=== PATIENT | female | born 1990 | race Caucasian/White ===

== ENCOUNTER 2017-03-22 17:04 | Observation (INO) | payer OTHER ==
[2017-03-22] MEDS ORDERED: TYLENOL 325 MG PO ONE (17:27)
[2017-03-22] MEDS ORDERED: Sodium Chloride 0.9% 1000 ML 1,000 ML IV STA ×2 (17:27→17:30)
[2017-03-22] MEDS ORDERED: Sodium Chloride 0.9% 1000 ML 1,000 ML ONE ×2 (17:32→18:39)
[2017-03-22] MEDS ORDERED: TYLENOL 325 MG ONE (17:32)
--- NOTE | 2017-03-22 17:36 | ERPHSYRPT ---
- History of Present Illness Time Seen by Provider: 03/22/17 17:24 Source: patient Exam Limitations: no limitations Patient Subjective Stated Complaint: pt here for sob,fever for 3 days now, and pain with a deep breath, cough, congestion Triage Nursing Assessment: pt alert, but anxious, and cruing off and on, moaning , pt has red blotches on trunk and arms, no new meds, resp easy, chest clear, congested cough, pt states she used iv drugs Physician History: 26-year-old white female arrives with complaint of shortness of breath fever cough productive of yellow-green sputum nausea vomiting symptoms for 3 days. Patient has had a macular rash. Patient does have a history of substance abuse however denies IV drug use. Patient apparently has recently come here from [place] past medical history includes migraines, depression, substance abuse. Past surgical history patient denies. Social history includes tobacco use. Timing/Duration: day(s) (3 days) Severity: moderate Modifying Factors: Worsens With: eating, immobilization, medication, movement, rest, acetaminophen, ibuprofen, nothing Associated Symptoms: nausea, vomiting, shortness of breath, cough, fever, malaise, rash, No heartburn, No diaphoresis, No chills, No chest pain, No headaches, No loss of appetite, No syncope, No seizure, No weakness Allergies/Adverse Reactions: No Known Drug Allergies Allergy (Verified 03/22/17 17:21) Home Medications: No Reportable Medications [No Reported Medications] 03/22/17 [History] Hx Tetanus, Diphtheria Vaccination/Date Given: No Hx Influenza Vaccination/Date Given: No Hx Pneumococcal Vaccination/Date Given: No Immunizations Up to Date: Yes - Review of Systems Constitutional: No Fever, No Chills Eyes: No Symptoms, No Discharge, No Eye Pain, No Eye Redness, No Itchy, No Photophobia, No Tearing, No Vision Changes, No Double Vision, No Foreign Body Sensation Ears, Nose, & Throat: Throat Pain, No Ear Pain, No Ear Discharge, No Hearing Changes, No Tinnitus, No Nose Pain, No Nose Congestion, No Nose Discharge, No Sinus Drainage, No Epistaxis, No Mouth Pain, No Mouth Swelling, No Loose Teeth, No Throat Swelling, No Hoarse, No Painful Swallowing, No Snoring Respiratory: Cough, Dyspnea, No Cyanosis, No Dyspnea on Exertion ([place]), No Stridor, No Wheezing Cardiac: No Chest Pain, No Edema, No Syncope Abdominal/Gastrointestinal: Nausea, Vomiting, No Abdominal Pain, No Diarrhea, No Constipation, No Hematemesis, No Hematochezia, No Melena, No Dysphagia, No Appetite Changes Genitourinary Symptoms: No Dysuria Musculoskeletal: Myalgias, No Arthralgias, No Back Pain, No Neck Pain, No Deformity, No Injury, No Joint Redness, No Joint Pain, No Joint Swelling Skin: Other (macular rasb on extremities) Neurological: No Dizziness, No Focal Weakness, No Sensory Changes Psychological: No Symptoms Endocrine: No Symptoms All Other Systems: Reviewed and Negative - Past Medical History Pertinent Past Medical History: Yes Neurological History: Migraines Psycho-Social History: Depression - Past Surgical History Past Surgical History: No - Social History Smoking Status: Current every day smoker How long have you smoked: 6 Exposure to second hand smoke: Yes Drug Use: marijuana, narcotics Patient Lives Alone: No - Female History Hx Last Menstrual Period: nov Hx Now: No - Nursing Vital Signs Nursing Vital Signs: Initial Vital Signs Temperature 102.8 F 03/22/17 17:07 Pulse Rate 139 H 03/22/17 17:07 Respiratory Rate 20 03/22/17 17:07 Blood Pressure 99/53 03/22/17 17:07 O2 Sat by Pulse Oximetry 97 03/22/17 17:07 Pain Scale Pain Intensity 10 - Physical Exam General Appearance: moderate distress, alert Eye Exam: PERRL/EOMI, eyes nml inspection Ears, Nose, Throat Exam: TMs normal, moist mucous membranes, pharyngeal erythema Neck Exam: normal inspection, non-tender, supple, full range of motion Respiratory Exam: normal breath sounds, lungs clear, No respiratory distress Cardiovascular Exam: tachycardia, capillary refill <2 sec, No murmur Gastrointestinal/Abdomen Exam: soft, normal bowel sounds, No tenderness, No mass Back Exam: normal inspection, normal range of motion, No CVA tenderness, No vertebral tenderness Extremity Exam: normal inspection, normal range of motion, pelvis stable Neurologic Exam: alert, oriented x 3, cooperative, disc sander II-XII nml as tested, normal mood/affect, nml cerebellar function, nml station & gait, sensation nml, No motor deficits Skin Exam: normal color, warm, dry, No rash SpO2 Interpretation: normal (97%) SpO2: 97 Oxygen Delivery: Room Air - Course Nursing assessment & vital signs reviewed: Yes EKG Interpreted by Me: RATE (128 bpm), Sinus Tach (EKG: Sinus tachycardia 128 beats per minute< AXISQI/SIII pattern, no acute ST or T wave changes noted) - Radiology Exams Chest X-ray Interpretation: Interpreted by me, Other (patchy interstitial infiltrate, right greater than left) Left Foot X-ray Interpretation: Interpreted by me, Negative, No Fracture, No Subluxation Ordered Tests: Active Orders 24 hr Category Date Time Status Clean Catch Urine Specimen STAT Care 03/22/17 17:59 Active EKG-ER Only STAT Care 03/22/17 17:27 Active IV Insertion STAT Care 03/22/17 17:27 Active CHEST 1 VIEW (PORTABLE) Stat Exams 03/22/17 17:28 Taken FOOT (MINIMUM 3 VIEWS) Stat Exams 03/22/17 18:12 Taken AMYLASE Stat Lab 03/22/17 17:45 Completed BLOOD CULTURE Stat Lab 03/22/17 17:50 Received CBC W DIFF Stat Lab 03/22/17 17:45 Completed CMP Stat Lab 03/22/17 17:45 Completed CULTURE, THROAT Stat Lab 03/22/17 17:50 Received CULTURE,URINE Stat Lab 03/22/17 18:00 Received HCG QUALITATIVE,SERUM Stat Lab 03/22/17 17:45 Completed LIPASE Stat Lab 03/22/17 17:45 Completed Lactic Acid Stat Lab 03/22/17 17:27 Results Manual Differential NC Stat Lab 03/22/17 17:45 Completed STREP SCREEN-BETA A Stat Lab 03/22/17 17:50 Completed UA W/ MICROSCOPIC Stat Lab 03/22/17 18:00 Completed Urine Triage Profile Stat Lab 03/22/17 17:38 Completed Medication Summary Discontinued Medications Generic Name Dose Route Start Last Admin Trade Name Freq PRN Reason Stop Dose Admin Acetaminophen 650 mg 03/22/17 17:27 03/22/17 17:36 Tylenol 325 Mg PO 03/22/17 17:28 650 mg STAT ONE Administration Acetaminophen Confirm 03/22/17 17:32 Tylenol 325 Mg Administered 03/22/17 17:33 Dose 650 mg .ROUTE .STK-MED ONE Diphenhydramine HCl 25 mg 03/22/17 18:04 03/22/17 18:06 Benadryl 50 Mg/Ml IV 03/22/17 18:05 25 mg STAT ONE Administration Diphenhydramine HCl Confirm 03/22/17 18:05 Benadryl 50 Mg/Ml Administered 03/22/17 18:06 Dose 50 mg .ROUTE .STK-MED ONE Sodium Chloride 1,000 mls @ 999 mls/hr 03/22/17 17:27 03/22/17 17:36 Sodium Chloride 0.9% 1000 Ml IV 03/22/17 18:27 999 mls/hr .Q1H1M STA Administration Sodium Chloride 1,000 mls @ 999 mls/hr 03/22/17 17:30 03/22/17 18:40 Sodium Chloride 0.9% 1000 Ml IV 03/22/17 18:30 999 mls/hr .Q1H1M STA Administration Sodium Chloride Confirm 03/22/17 17:32 Sodium Chloride 0.9% 1000 Ml Administered 03/22/17 17:33 Dose 1,000 mls @ ud .ROUTE .STK-MED ONE Ceftriaxone Sodium/Dextrose 1 g in 50 mls @ 100 mls/hr 03/22/17 17:49 18:07 Rocephin 1 Gm-D5w 50 Ml Bag IV 03/22/17 18:18 100 mls/hr STAT STA Administration Ceftriaxone Sodium/Dextrose Confirm 03/22/17 18:01 Rocephin 1 Gm-D5w 50 Ml Bag Administered 03/22/17 18:02 Dose 1 g in 50 mls @ ud IV .STK-MED ONE Sodium Chloride Confirm 03/22/17 18:39 Sodium Chloride 0.9% 1000 Ml Administered 03/22/17 18:40 Dose 1,000 mls @ ud .ROUTE .STK-MED ONE Ibuprofen 400 mg 03/22/17 18:14 03/22/17 18:21 Motrin 400 Mg PO 03/22/17 18:15 400 mg STAT ONE Administration Ibuprofen Confirm 03/22/17 18:20 Motrin 400 Mg Administered 03/22/17 18:21 Dose 400 mg .ROUTE .STK-MED ONE Potassium Chloride 40 meq 03/22/17 18:48 03/22/17 18:52 Klor Con 10 Meq PO 03/22/17 18:49 40 meq STAT ONE Administration Potassium Chloride Confirm 03/22/17 18:49 Klor Con 10 Meq Administered 03/22/17 18:50 Dose 40 meq PO .STK-MED ONE Lab/Rad Data: Laboratory Result Diagrams 03/22/17 17:45 03/22/17 17:45 Laboratory Results 03/22/17 03/22/17 03/22/17 Range/Units 18:00 17:50 17:45 WBC (4.0-10.5) K/mm3 RBC (4.1-5.4) M/mm3 Hgb (12.0-16.0) gm/dl Hct (35-47) % MCV (78-100) fl MCH (26-32) pg MCHC (32-36) g/dl RDW (11.5-14.0) % Plt Count (150-450) K/mm3 MPV (6-9.5) fl Sodium (136-145) mEq/L Potassium (3.5-5.1) mEq/L Chloride (98-107) mEq/L Carbon Dioxide (21-32) mEq/L Anion Gap (5-15) MEQ/L BUN (9-20) mg/dL Creatinine (0.55-1.30) mg/dl Estimated GFR ML/MIN Glucose (70-110) MG/DL Lactic Acid (0.4-2.0) Calcium (8.5-10.1) mg/dL Total Bilirubin (0.2-1.0) mg/dL AST (15-37) U/L ALT (12-78) U/L Alkaline Phosphatase (46-116) U/L Serum Total Protein (6.4-8.2) gm/dL Albumin (3.4-5.0) g/dL Amylase (25-115) U/L Lipase (73-393) U/L Serum , Qual (Negative) Ur Collection Type CCMS Urine Color YELLOW (YELLOW) Urine Appearance SLIGHTLY CLOUDY (CLEAR) Urine pH 6.0 (5-6) Ur Specific [place] 1.015 (1.005-1.025) Urine Protein TRACE (Negative) Urine Ketones MODERATE (NEGATIVE) Urine Blood TRACE NON-HEM (0-5) Blas/ul Urine Nitrite NEGATIVE (NEGATIVE) Urine Bilirubin SMALL (NEGATIVE) Urine Urobilinogen 4 (0-1) mg/dL Ur Leukocyte Esterase NEGATIVE (NEGATIVE) Urine Microscopic RBC 2-5 (0-2) /HPF Urine Microscopic WBC 2-5 (0-5) /HPF Ur Epithelial Cells MANY (FEW) /HPF Urine Bacteria FEW (NEGATIVE) /HPF Urine Mucus SLIGHT (NEGATIVE) /HPF Urine Culture Reflexed YES (NO) Urine Glucose NEGATIVE (NEGATIVE) mg/dL Urine Opiates Level (NEGATIVE) Ur Methadone (NEGATIVE) Urine Barbiturates (NEGATIVE) Ur Phencyclidine (PCP) (NEGATIVE) Urine Amphetamine (NEGATIVE) U Benzodiazepine Level (NEGATIVE) Urine Cocaine (NEGATIVE) Urine Marijuana (THC) (NEGATIVE) Influenza Type A Ag NEGATIVE (NEGATIVE) Influenza Type B Ag NEGATIVE (NEGATIVE) Streptococcus Screen NEGATIVE (Negative) Specimen Received 03-22-17 1856 03/22/17 03/22/17 03/22/17 Range/Units 17:45 17:45 17:45 WBC 10.0 (4.0-10.5) K/mm3 RBC 4.07 L (4.1-5.4) M/mm3 Hgb 12.4 (12.0-16.0) gm/dl Hct 36.4 (35-47) % MCV 89.4 (78-100) fl MCH 30.4 (26-32) pg MCHC 34.1 (32-36) g/dl RDW 13.2 (11.5-14.0) % Plt Count 113 L (150-450) K/mm3 MPV 10.5 H (6-9.5) fl Sodium 131 L (136-145) mEq/L Potassium 3.0 L* (3.5-5.1) mEq/L Chloride 92 L (98-107) mEq/L Carbon Dioxide 26.3 (21-32) mEq/L Anion Gap 15.7 H (5-15) MEQ/L BUN 10 (9-20) mg/dL Creatinine 0.90 (0.55-1.30) mg/dl Estimated GFR > 60 ML/MIN Glucose 114 H (70-110) MG/DL Lactic Acid (0.4-2.0) Calcium 8.5 (8.5-10.1) mg/dL Total Bilirubin 0.70 (0.2-1.0) mg/dL AST 22 (15-37) U/L ALT 22 (12-78) U/L Alkaline Phosphatase 81 (46-116) U/L Serum Total Protein 7.5 (6.4-8.2) gm/dL Albumin 2.7 L (3.4-5.0) g/dL Amylase 25 (25-115) U/L Lipase 85 (73-393) U/L Serum , Qual NEGATIVE (Negative) Ur Collection Type Urine Color (YELLOW) Urine Appearance (CLEAR) Urine pH (5-6) Ur Specific [place] (1.005-1.025) Urine Protein (Negative) Urine Ketones (NEGATIVE) Urine Blood (0-5) Lbas/ul Urine Nitrite (NEGATIVE) Urine Bilirubin (NEGATIVE) Urine Urobilinogen (0-1) mg/dL Ur Leukocyte Esterase (NEGATIVE) Urine Microscopic RBC (0-2) /HPF Urine Microscopic WBC (0-5) /HPF Ur Epithelial Cells (FEW) /HPF Urine Bacteria (NEGATIVE) /HPF Urine Mucus (NEGATIVE) /HPF Urine Culture Reflexed (NO) Urine Glucose (NEGATIVE) mg/dL Urine Opiates Level (NEGATIVE) Ur Methadone (NEGATIVE) Urine Barbiturates (NEGATIVE) Ur Phencyclidine (PCP) (NEGATIVE) Urine Amphetamine (NEGATIVE) U Benzodiazepine Level (NEGATIVE) Urine Cocaine (NEGATIVE) Urine Marijuana (THC) (NEGATIVE) Influenza Type A Ag (NEGATIVE) Influenza Type B Ag (NEGATIVE) Streptococcus Screen (Negative) Specimen Received 03/22/17 03/22/17 Range/Units 17:38 17:27 WBC (4.0-10.5) K/mm3 RBC (4.1-5.4) M/mm3 Hgb (12.0-16.0) gm/dl Hct (35-47) % MCV (78-100) fl MCH (26-32) pg MCHC (32-36) g/dl RDW (11.5-14.0) % Plt Count (150-450) K/mm3 MPV (6-9.5) fl Sodium (136-145) mEq/L Potassium (3.5-5.1) mEq/L Chloride (98-107) mEq/L Carbon Dioxide (21-32) mEq/L Anion Gap (5-15) MEQ/L BUN (9-20) mg/dL Creatinine (0.55-1.30) mg/dl Estimated GFR ML/MIN Glucose (70-110) MG/DL Lactic Acid 2.2 H (0.4-2.0) Calcium (8.5-10.1) mg/dL Total Bilirubin (0.2-1.0) mg/dL AST (15-37) U/L ALT (12-78) U/L Alkaline Phosphatase (46-116) U/L Serum Total Protein (6.4-8.2) gm/dL Albumin (3.4-5.0) g/dL Amylase (25-115) U/L Lipase (73-393) U/L Serum , Qual (Negative) Ur Collection Type Urine Color (YELLOW) Urine Appearance (CLEAR) Urine pH (5-6) Ur Specific [place] (1.005-1.025) Urine Protein (Negative) Urine Ketones (NEGATIVE) Urine Blood (0-5) Blas/ul Urine Nitrite (NEGATIVE) Urine Bilirubin (NEGATIVE) Urine Urobilinogen (0-1) mg/dL Ur Leukocyte Esterase (NEGATIVE) Urine Microscopic RBC (0-2) /HPF Urine Microscopic WBC (0-5) /HPF Ur Epithelial Cells (FEW) /HPF Urine Bacteria (NEGATIVE) /HPF Urine Mucus (NEGATIVE) /HPF Urine Culture Reflexed (NO) Urine Glucose (NEGATIVE) mg/dL Urine Opiates Level NEG. (NEGATIVE) Ur Methadone NEG. (NEGATIVE) Urine Barbiturates NEG. (NEGATIVE) Ur Phencyclidine (PCP) NEG. (NEGATIVE) Urine Amphetamine POS. (NEGATIVE) U Benzodiazepine Level POS. (NEGATIVE) Urine Cocaine NEG. (NEGATIVE) Urine Marijuana (THC) POS. (NEGATIVE) Influenza Type A Ag (NEGATIVE) Influenza Type B Ag (NEGATIVE) Streptococcus Screen (Negative) Specimen Received - Progress Progress: improved Progress Note: 03/22/17 17:50 26-year-old white female with history of migraines and depression Arrives with complaint of shortness of breath, fever, cough productive of yellow sputum, macular rash to her extremities symptoms for 3 days. Patient does have a temperature of 102.8 is a heart rate of 139 blood pressure 99/53. She has good capillary refill to her extremities she is alert oriented 3 patient has been given Tylenol 650 mg orally blood cultures urine culture CBC CMP amylase lipase urine drug screen urine and chest have all been ordered. Normal saline 2 L IV have been ordered. And Rocephin has been ordered to be given as soon as urine is obtained. Strep and influenza has been ordered as well. Lactate is mildly elevated at 2.2 . 03/22/17 19:04 Patient 's temperature now 101 orally, pulse 121 blood pressure 112/70 oxygen saturation 95% patient with pulses 2/4 and good capillary refill to all extremities cxr shows patchy interstitial infiltrate right greater than left, UDS positive for amphetamines, benziodiazepines and thc. patient improving, case discussed with Dr Aguirre traffic division commanding officer for hospital will place patient on observation, continue IV fluids, begin Rocephin continue tylenol and motrin. will repeat lactate at 20:27 03/22/17 19:[address] patient stated that Dr Adorno was not her doctor therefore Dr Aguirre was contacted. - Departure Time of Disposition: 19:10 Departure Disposition: Observation Clinical Impression: Fever Qualifiers: Fever type: unspecified Qualified Code(s): R50.9 - Fever, unspecified Pneumonia Qualifiers: Pneumonia type: due to unspecified organism Laterality: bilateral Lung location : unspecified part of lung Qualified Code(s): J18.9 - Pneumonia, unspecified organism Condition: Fair Critical Care Time: No Referrals: JUDE ADORNO [Primary Care Provider] -
[2017-03-22 17:44] LABS: Lactic Acid 2.2 (0.4-2.0)
[2017-03-22] MEDS ORDERED: ROCEPHIN 1 Gm-D5w 50 ml Bag** 1 G/50 ML IVPB IV STA (17:49)
[2017-03-22 17:57] LABS: Granulocyte Absolute (ANC) 8.28 (1.4-6.9); Hematocrit 36.4 % (35-47); Hemoglobin 12.4 gm/dl (12.0-16.0); Mean Cell Volume 89.4 fl (78-100); Mean Corpuscular Hgb Concent. 34.1 g/dl (32-36); Mean Platelet Volume 10.5 fl (6-9.5); Platelet Count 113 K/mm3 (150-450); Red Blood Count 4.07 M/mm3 (4.1-5.4); Red Cell Distribution Width 13.2 % (11.5-14.0)
[2017-03-22] MEDS ORDERED: ROCEPHIN 1 Gm-D5w 50 ml Bag** 1 G/50 ML IVPB IV ONE (18:01)
[2017-03-22] MEDS ORDERED: BENADRYL 50 MG/ML IV ONE (18:04)
[2017-03-22] MEDS ORDERED: BENADRYL 50 MG/ML ONE (18:05)
[2017-03-22] MEDS ORDERED: MOTRIN 400 MG PO ONE (18:14)
[2017-03-22] MEDS ORDERED: MOTRIN 400 MG ONE (18:20)
[2017-03-22 18:21] LABS: Mean Corpuscular Hemoglobin 30.4 pg (26-32)
[2017-03-22 18:27] LABS: ALBUMIN 2.7 g/dL (3.4-5.0); ALKALINE PHOSPHATASE 81 U/L (46-116); AMYLASE 25 U/L (25-115); ANION GAP 15.7 MEQ/L (5-15); BLOOD UREA NITROGEN 10 mg/dL (9-20); CHLORIDE 92 mEq/L (98-107); Calcium 8.5 mg/dL (8.5-10.1); Carbon Dioxide 26.3 mEq/L (21-32); EST GLOMERULAR FILTRATION RATE > 60 ML/MIN; Glucose 114 MG/DL (70-110); LIPASE 85 U/L (73-393); SGOT/AST 22 U/L (15-37); SGPT/ALT 22 U/L (12-78); Total Protein 7.5 gm/dL (6.4-8.2)
[2017-03-22 18:29] LABS: Amphetamine,Urine POS. (NEGATIVE); Barbiturate,Urine NEG. (NEGATIVE); Benzodiazepine,Urine POS. (NEGATIVE); Cocaine,Urine NEG. (NEGATIVE); Methadone,Urine NEG. (NEGATIVE); Opiate,Urine NEG. (NEGATIVE); PCP,Urine NEG. (NEGATIVE); THC,Urine POS. (NEGATIVE)
[2017-03-22 18:35] LABS: INFLUENZA A NEGATIVE (NEGATIVE); INFLUENZA B NEGATIVE (NEGATIVE)
[2017-03-22 18:44] LABS: SODIUM 131 mEq/L (136-145)
[2017-03-22] MEDS ORDERED: Klor Con 10 MEQ PO ONE ×2 (18:48→18:49)
[2017-03-22 18:54] LABS: Appearance SLIGHTLY CLOUDY (CLEAR); Glucose NEGATIVE (NEGATIVE); Ketones MODERATE (NEGATIVE); Leukocyte Esterase NEGATIVE (NEGATIVE); Nitrite NEGATIVE (NEGATIVE); Protein,Urine Dip TRACE (Negative); Specific Gravity 1.015 (1.005-1.025)
[2017-03-22 18:55] LABS: Bacteria FEW /HPF (NEGATIVE); Bilirubin SMALL (NEGATIVE); Blood TRACE NON-HEM Ery/ul (0-5); Epithelial Cells MANY /HPF (FEW); Mucus SLIGHT /HPF (NEGATIVE); Urobilinogen 4 mg/dL (0-1)
[2017-03-22] MEDS ORDERED: TYLENOL 325 MG PO PRN (20:00)
[2017-03-22] MEDS ORDERED: Sodium Chloride 0.9% 1000 ML 1,000 ML IV SCH (20:00)
[2017-03-22] MEDS ORDERED: MOTRIN 400 MG PO PRN (20:00)
[2017-03-23 00:23] LABS: Lymphocytes 15 % (24-44); Monocyte 9 % (0.0-12.0); Neutrophils 76 % (36.0-66.0); Platelet Estimate NORMAL (NORMAL); Total Cells Counted 100
[2017-03-23] MEDS ORDERED: Sodium Chloride 0.9% W/ 20 mEq KCl/LITER 1,000 ML IV SCH (02:15)
--- NOTE | 2017-03-23 02:19 | PCM.HP ---
History of Present Illness - Chief Complaint Chief Complaint: Fever, pneumonia History of Present Illness: is a 26 year old female who presented to the ER with a 3 day history of cough, fever, shortness of breath and chest pain with a cough or deep inspiration. She has no local physician, recently just returned to the area. She admits to using narcotics IV and is interested in seeking help with her addiction problems. - Review of Systems Constitutional: No Fever, No Chills Respiratory: Cough, Short Of Breath Cardiac: No Chest Pain, No Edema, No Syncope Abdominal/Gastrointestinal: No Abdominal Pain, No Nausea, No Vomiting, No Diarrhea Musculoskeletal: Other (left foot pain) All Other Systems: Reviewed and Negative Medications & Allergies Home Medications: Home Medication List No Reportable Medications [No Reported Medications] 03/22/17 [History Confirmed 03/22/17] Allergies/Adverse Reactions: Allergies Allergy/AdvReac Type Severity Reaction Status Date / Time No Known Drug Allergies Allergy Verified 03/22/17 17:21 - Past Medical History Past Medical History: Yes Neurological History: Migraines Pyscho-Social History: Depression - Female History Hx Last Menstrual Period: nov Are you now?: No - Past Surgical History Past Surgical History: No - Social History Smoking Status: Current every day smoker How long have you smoked: 6 Exposure to second hand smoke: Yes Alcohol: None Drug Use: bath salts - Physical Exam Vital Signs: Vital Signs - 24 hr Temp Pulse Resp BP Pulse Ox 03/23/17 00:00 98.2 F 101 H 20 94/50 97 03/22/17 22:34 98.9 F 109 H 15 92/50 97 03/22/17 20:00 95 03/22/17 19:12 97 03/22/17 18:30 120 H 20 115/53 96 03/22/17 18:05 138 H 20 116/83 95 03/22/17 18:00 128 H 20 116/63 97 03/22/17 17:07 102.8 F 139 H 20 99/53 97 General Appearance: no apparent distress Neurologic Exam: alert Respiratory Exam: rhonchi Cardiovascular Exam: regular rate/rhythm, normal heart sounds, normal peripheral pulses Gastrointestinal/Abdomen Exam: soft, normal bowel sounds, No tenderness, No mass Extremity Exam: other (left matting press tender, mild erythema and warmth to forefoot area) Results - Labs Lab/Micro Results: Lab Results-Last 24 Hours 03/22/17 Range/Units 21:52 Lactic Acid 0.9 (0.4-2.0) - Radiology Impressions Radiology Exams & Impressions: Radiology Procedures Category Date Time Status VENOUS UNILAT/LIMITED EXTREMIT [US] Routine Exams 03/23/17 07:00 Ordered - Other Procedures and Tests Respiratory Therapy 03/22/17 23:15 Smoking Cessation Education Assessment/Plan (1) Pneumonia Current Visit: Yes Status: Acute Qualifiers: Pneumonia type: due to unspecified organism Laterality: bilateral Lung location: unspecified part of lung Qualified Code(s): J18.9 - Pneumonia, unspecified organism Assessment & Plan: on rocephin and zithromax at this time, stable Code(s): J18.9 - PNEUMONIA, UNSPECIFIED ORGANISM (2) Cellulitis of left foot Current Visit: Yes Status: Acute Assessment & Plan: continue rocephin, get venous doppler in am to r/o dvt Code(s): L03.116 - CELLULITIS OF LEFT LOWER LIMB (3) Substance abuse Current Visit: Yes Status: Acute Assessment & Plan: will consult prior to discharge to arrange treatment Code(s): F19.10 - OTHER PSYCHOACTIVE SUBSTANCE ABUSE, UNCOMPLICATED (4) Hypokalemia Current Visit: Yes Status: Acute Assessment & Plan: being replaced at this time Code(s): E87.6 - HYPOKALEMIA
[2017-03-23 04:34] LABS: Granulocyte Absolute (ANC) 5.08 (1.4-6.9); Hematocrit 30.8 % (35-47); Hemoglobin 10.4 gm/dl (12.0-16.0); Mean Cell Volume 90.3 fl (78-100); Mean Corpuscular Hgb Concent. 33.8 g/dl (32-36); Platelet Count 78 K/mm3 (150-450); Red Blood Count 3.41 M/mm3 (4.1-5.4); Red Cell Distribution Width 13.3 % (11.5-14.0); White Blood Count 6.6 K/mm3 (4.0-10.5)
[2017-03-23 04:49] LABS: ALBUMIN 1.9 g/dL (3.4-5.0); ALKALINE PHOSPHATASE 59 U/L (46-116); ANION GAP 13.5 MEQ/L (5-15); BLOOD UREA NITROGEN 10 mg/dL (9-20); CHLORIDE 107 mEq/L (98-107); Calcium 7.3 mg/dL (8.5-10.1); Carbon Dioxide 22.7 mEq/L (21-32); Creatinine 1 0.71 mg/dl (0.55-1.30); EST GLOMERULAR FILTRATION RATE > 60 ML/MIN; Glucose 133 MG/DL (70-110); Potassium 3.4 mEq/L (3.5-5.1); SGOT/AST 19 U/L (15-37); SGPT/ALT 14 U/L (12-78); SODIUM 140 mEq/L (136-145); Total Protein 5.5 gm/dL (6.4-8.2)
[2017-03-23 04:52] LABS: Mean Corpuscular Hemoglobin 30.4 pg (26-32)
[2017-03-23] MEDS ORDERED: Nicoderm CQ 21 MG TOP SCH (06:00)
[2017-03-23 07:44] LABS: BAND 2 % (0.0-2.0); Lymphocytes 6 % (24-44); Monocyte 4 % (0.0-12.0); Neutrophils 88 % (36.0-66.0); Poikilocytosis 1+; Total Cells Counted 100
[2017-03-23 07:45] LABS: ANISOCYTOSIS 1+; Platelet Estimate NORMAL (NORMAL); Toxic Granulation 1+
[2017-03-23] MEDS ORDERED: VANCOCIN 1 GM VIAL*** 1 GM in Sodium Chloride 0.9% 250 ML 250 ML IV ONE (08:00)
--- NOTE | 2017-03-23 08:39 | XRAY ---
Indication: Fever, short of breath, and cough. Elevated d-dimer. Multiple contiguous axial images obtained through the chest using 80 cc Isovue 370 contrast and PE protocol. Comparison: None There is satisfactory opacification of the pulmonary arteries. However respiration artifact limits evaluation of the more distal lobar/segmental branches. Query pulmonary embolus in the apical posterior segment branch. No other pulmonary embolus. Heart is not enlarged. Aorta is normal in course and caliber. No pathologic mediastinal/hilar lymphadenopathy. Examination of the lung parenchyma demonstrates scattered patchy airspace opacities bilaterally, greatest medial left upper lobe. Some of the opacities demonstrate tiny cavitations. Also tiny bilateral effusions. Bony thorax intact. Limited upper abdomen is unremarkable. Impression: 1. Respiration artifact limits evaluation for pulmonary embolus. Query left upper lobe segmental pulmonary embolus. 2. Scattered bilateral airspace opacities with a few tiny cavitations and tiny bilateral effusions. Partial differential includes atypical/fungal infection versus septic emboli. Comment: Preliminary interpretation was made by [facility]. No critical discrepancy. CT DI 10.00
--- NOTE | 2017-03-23 08:41 | XRAY ---
Indication: Pain. Comparison: None 3 nonweightbearing views of the left foot obtained. Lateral view limited due to suboptimal positioning as the patient was reported to be uncooperative. No bony, articular, or soft tissue abnormalities.
--- NOTE | 2017-03-23 08:41 | XRAY ---
Indication: Fever and cough. Comparison: May 30, 2010. Portable chest demonstrates new patchy bilateral airspace disease without consolidation or large effusion. Remaining heart and bony thorax remain normal.
[2017-03-23] MEDS: PERCOCET TABLET 5/325MG PO PRN ×2 (09:18→14:07)
[2017-03-23] MEDS ORDERED: ROCEPHIN 1 Gm-D5w 50 ml Bag** 1 G/50 ML IVPB IV SCH (10:00)
[2017-03-23] MEDS ORDERED: Zithromax 500 MG/ 250 ML NaCl Premix 500 MG/250 ML IVPB IV SCH (10:00)
--- NOTE | 2017-03-23 10:21 | XRAY ---
Indication: Left foot pain, swelling, and redness. Two-dimensional sonogram and color Doppler imaging of the major venous vessels of the left leg was performed. Comparison: None No thrombus seen in the examined deep venous vessels of the left leg including greater saphenous vein. Veins demonstrate normal compressibility. Venous waveforms are normal with and without augmentation. Impression: Left leg negative for DVT.
--- NOTE | 2017-03-23 11:33 | ECHO ---
DATE: 03/23/17 A transthoracic echocardiograph examination with color Doppler study was done. INDICATION: Septic emboli, rule out endocarditis. IMPRESSION: 1. NO REGIONAL WALL MOTION ABNORMALITY WITH ESTIMATED GLOBAL LEFT VENTRICULAR EJECTION FRACTION AROUND 60%. 2. VEGETATION ON THE SEPTAL LEAFLET OF THE TRICUSPID VALVE. 3. TRACE TRICUSPID REGURGITATION WITH RIGHT VENTRICULAR SYSTOLIC PRESSURE OF 20 MM OF MERCURY. The left ventricle was visualized and demonstrated adequate motion of all the segments with estimated global left ventricular ejection fraction of 60%. The left ventricular thickness is normal. The mitral valve was seen and this opens adequately. No significant mitral regurgitation is seen. The left atrium is normal. The aortic valve opens adequately. Right-sided chambers are mildly dilated. In the septal leaflet of the tricuspid valve is a mobile echo density which is highly suggestive of a vegetation. There is trace tricuspid regurgitation with right ventricular systolic pressure of 20 mm Hg.
[2017-03-23] MEDS ORDERED: Sodium Chloride 0.9% 500 ML 500 ML IV ONE ×3 (11:51→13:18)
[2017-03-23 11:59] VITALS: BP 87/53; PULSE 118; O2SAT 97
--- NOTE | 2017-03-23 13:33 | CONS ---
CONSULT DATE: 03/23/17 REASON FOR CONSULTATION: Severe sepsis endocarditis. HISTORY OF PRESENT ILLNESS: History is obtained from reviewing current records and discussion with patient. Ms. Contreras is a 26 y/o frail patient who has been hospitalized with complaints of cough, chills, and shortness of breath that started about 4-5 days prior to admission. Patient reports being an IV drug user with last use 2 days ago. She used morphine as well as amphetamines IV. Her urine tox screen has been positive for those. In addition, patient was noted to have positive blood cultures identification of which is pending presuming very likely to be staph aureus. Patient has been started on IV vancomycin along with Rocephin and Zithromax. At the time of my evaluation, she reports nonproductive cough. Patient reports generalized aches and pains from coughing. She denies any hemoptysis. There has been no prior history of any pulmonary problems. She denies prior history of endocarditis as well. PAST MEDICAL HISTORY: Patient reportedly has no other health problems for which she takes prescription medications. PAST SURGICAL HISTORY: Negative. PERSONAL AND SOCIAL HISTORY: Patient states that she has 3 children, 1 and 3 year old currently living with her. She has been living with her mother in a trailer. Patient states that her mother is going through stage IV lung cancer chemotherapy and she plans to move with her father upon discharge from the hospital. ALLERGIES: NO MEDICATION ALLERGIES. CURRENT MEDICATIONS: Current medications are reviewed. PHYSICAL EXAMINATION: This is a young, frail woman who appears mildly tachypneic at rest. Temperature maximum 102.8, heart rate 110, BP 108/53, saturating 97%. HEENT: Normocephalic. Oral exam shows poor oral hygiene, partial edentulous. NECK: Supple. CVS: 1st and 2nd heart sounds with pansystolic murmur. Mild tachycardia is noted as well. LUNGS: Breath sounds are diminished. Crackles are heard. ABDOMEN: Soft, no significant edema is noted. WBC 6.6, Hgb 10.4, Hct 30.8, and platelets 78,000. D-dimer 12,078. Blood cultures positive for gram positive cocci. Sodium 140, potassium 3.4, chloride 107, bicarb 23, glucose 133, BUN 10, creatinine 0.7. Lactic acid 0.9. Serum human chorionic gonadotropin is negative. UA noted. CT chest noted. Lower extremity left is negative for deep vein thrombosis. ASSESSMENT: 1. THIS IS A 26 Y/O WOMAN WITH HISTORY OF IV DRUG USE ADMITTED WITH WHAT APPEARS TO BE SEPTIC EMBOLI FROM IV DRUG USE WITH RIGHT-SIDED ENDOCARDITIS. 2. THROMBOCYTOPENIA AND ANEMIA. 3. IV DRUG ABUSE. 4. PULMONARY EMBOLUS. Again, possibly septic embolus. Cannot differentiate between the [address] scan[address] 5. ANXIETY DISORDER. RECOMMENDATIONS: 1. Patient is covered with broad spectrum antibiotics, particularly vancomycin. 2. Keep peaks and troughs per therapeutic regimen. 3. Follow cultures. 4. Continue hydration. 5. Patient will likely require thoracic surgery intervention, particularly depending on size of vegetations. 6. Case management involvement due to positive tox screen given she has young kids at home. 7. Discussed with patient that her care is complicated and will require long-term input with prolonged antibiotic therapy with possible valvular heart surgery. Patient would benefit from being transferred to a higher level of care either in [place] or [place]. All options were discussed. Patient wishes to discuss with her family and decide on where she would like to be treated. Will await the same. In the meantime, continue hydration, deep vein thrombosis prophylaxis as well as antibiotics as reported above. Thank you for allowing me to participate in the care of Ms. Contreras.
== END 2017-03-23 13:45 | disposition short-term general hospital (02) ==
LOC: ED 17:04 → MED SURG 19:55
PROVIDERS: ADMIT Family Medicine; ATTEND Family Medicine
DX: J18.9 Pneumonia, unspecified organism (principal); I76 Septic arterial embolism; I38 Endocarditis, valve unspecified; L03.116 Cellulitis of left lower limb; I26.90 Septic pulmonary embolism without acute cor pulmonale; F19.10 Other psychoactive substance abuse, uncomplicated; E87.6 Hypokalemia; D69.6 Thrombocytopenia, unspecified; D64.9 Anemia, unspecified; R01.1 Cardiac murmur, unspecified; R00.0 Tachycardia, unspecified; F41.9 Anxiety disorder, unspecified; F32.9 Major depressive disorder, single episode, unspecified; M79.672 Pain in left foot; M79.89 Other specified soft tissue disorders; Z72.0 Tobacco use
CPT/HCPCS: 36000; 36415; 71010; 71260; 73630; 80053; 80307; 81000; 82150; 82962; 83605; 83690; 84703; 85025; 85379; 87040; 87070; 87077; 87086; 87186; 87400; 87430; 93005; 93268; 93306; 93971; 96360; 96361; 96365; 96374; 99285; G0378; J0456; J0696; J1200; J3370; A9270-GY